=== PATIENT | male | born 1975 | race African-American/Black ===

== ENCOUNTER 2016-10-17 11:07 | Emergency (ER) | payer SELFPAY ==
[~2016-10-17] VITALS: Ht 170.2 cm; Wt 91.8 kg
[~2016-10-17 11:07] MED LIST: NOHOMEMEDS
[2016-10-17 12:13] LABS: ADD MIUA? NO; BILIRUBIN NEGATIVE; BLOOD NEGATIVE; COLOR YELLOW ((YELLOW)); GLUCOSE (STRIP) NEGATIVE; KETONES NEGATIVE; LEUKOCYTES NEGATIVE; NITRITE NEGATIVE; PROTEIN (STRIP) NEGATIVE; SPECIFIC GRAVITY 1.017 (1.000-1.030); UROBILINOGEN 0.2 MG/DL (0.2-1.0)
[2016-10-17 12:24] LABS: HEMATOCRIT 39.9 % (38.0-50.0); MCH 21.3 PG (29.0-34.0); MCHC 32.6 G/DL (30.0-36.0); MCV 65.3 FL (86-99); MEAN PLAT.VOLUME 10.3 uM^3 (9.0-12.4); PLATELET COUNT 252 K/uL (156-360); RBC DIS.WIDTH-CV 16.9 % (11.8-14.6); RBC DIS.WIDTH-SD 35.4 % (39-53); RED BLOOD COUNT 6.11 M/uL (4.00-5.50); WHITE BLOOD COUNT 9.5 K/uL (4.1-10.2)
[2016-10-17 12:25] LABS: CHLORIDE 107 mEq/L (99-109); POTASSIUM 5.8 mEq/L (3.7-5.4); SODIUM 138 mEq/L (136-147)
[2016-10-17 12:27] LABS: GLUCOSE 101 mg/dL (70-99)
[2016-10-17 12:28] LABS: ANION GAP 11 MEQ/L (2-14)
[2016-10-17 12:29] LABS: TOTAL BILIRUBIN 0.3 mg/dL (0.0-1.0)
[2016-10-17 12:30] LABS: ALKALINE PHOSPHATASE 89 IU/L (3-129)
[2016-10-17 12:31] LABS: GFR ESTIMATE (CALCULATED) > 59 mL/min/
[2016-10-17 12:32] LABS: UREA NITROGEN (BUN) 25 mg/dL (9-23)
[2016-10-17 12:34] LABS: LIPASE 40 U/L (1.0-51.0)
[2016-10-17] MEDS ORDERED: BENTYL20 MG PO (15:26)
[2016-10-17 15:45] VITALS: BP 129/83
== END 2016-10-17 15:46 | disposition home or self-care (01) ==
LOC: EME 11:07
PROVIDERS: Nurse Practitioner Family
DX: R10.30 Lower abdominal pain, unspecified (principal); E87.5 Hyperkalemia; E11.9 Type 2 diabetes mellitus without complications; I10 Essential (primary) hypertension; F17.200 Nicotine dependence, unspecified, uncomplicated; Z88.6 Allergy status to analgesic agent
CPT/HCPCS: 74177; 80053; 81003; 83690; 85027; 93005; 99281; 99284; J1885; J7040

== ENCOUNTER 2017-05-13 13:54 | Emergency (ER) | payer SELFPAY ==
[~2017-05-13] VITALS: Ht 170.2 cm; Wt 86.5 kg
[~2017-05-13 13:54] MED LIST changes: +BENTYL20 MG PO
[2017-05-13 16:29] LABS: ADD MIUA? YES; BILIRUBIN NEGATIVE; BLOOD NEGATIVE; COLOR YELLOW ((YELLOW)); GLUCOSE (STRIP) NEGATIVE; KETONES NEGATIVE; LEUKOCYTES NEGATIVE; NITRITE NEGATIVE; PROTEIN (STRIP) 30; SPECIFIC GRAVITY 1.023 (1.000-1.030); UROBILINOGEN 0.2 MG/DL (0.2-1.0)
[2017-05-13 16:40] LABS: BACTERIA RARE /HPF; EPITHELIAL CELLS RARE /HPF; MUCUS TRACE /LPF; RED BLOOD CELLS 0-5 /HPF (0-5); UCUL ADDED? NO; WHITE BLOOD CELLS 0-5 /HPF (0-5)
[2017-05-13] MEDS ORDERED: LIDODERM 5% P1 PATCH TD (17:12)
[2017-05-13] MEDS ORDERED: FLEXERIL10 MG PO (17:12)
[2017-05-13 17:43] VITALS: BP 146/88
== END 2017-05-13 17:44 | disposition home or self-care (01) ==
LOC: EME 13:54
PROVIDERS: Nurse Practitioner Family
DX: S29.012A Strain of muscle and tendon of back wall of thorax, initial encounter (principal); M62.830 Muscle spasm of back; M54.5 Low back pain; F17.210 Nicotine dependence, cigarettes, uncomplicated; Z88.5 Allergy status to narcotic agent; Z88.6 Allergy status to analgesic agent
CPT/HCPCS: 81003; 99281; 99284

== ENCOUNTER 2017-06-30 19:01 | Emergency (ER) | payer SELFPAY ==
[~2017-06-30] VITALS: Ht 167.6 cm; Wt 87.8 kg
[~2017-06-30 19:01] MED LIST changes: +FLEXERIL10 MG PO; +LIDODERM 5% P1 PATCH TD
[2017-06-30 20:00] LABS: HEMATOCRIT 40.1 % (38.0-50.0); MCHC 32.4 G/DL (30.0-36.0); MCV 64.7 FL (86-99); PLATELET COUNT 257 K/uL (156-360); RBC DIS.WIDTH-CV 18.4 % (11.8-14.6); RBC DIS.WIDTH-SD 37.6 % (39-53); WHITE BLOOD COUNT 9.2 K/uL (4.1-10.2)
[2017-06-30 20:13] LABS: AMPHETAMINE NEGATIVE (500 ng/mL); BARBITURATES NEGATIVE (200 ng/mL); BENZODIAZEPINES NEGATIVE (150 ng/mL); BUPRENORPHINE NEGATIVE (10 ng/mL); COCAINE NEGATIVE (150 ng/mL); METHADONE NEGATIVE (200 ng/mL); METHAMPHETAMINE NEGATIVE (500 ng/mL); OPIATES (MORPHINE) NEGATIVE (100 ng/mL); OXYCODONE PRESUMPTIVE POSITIVE (100 ng/mL); PHENCYCLIDINE NEGATIVE (25 ng/mL); PROPOXYPHENE NEGATIVE (300 ng/mL); THC CANNABINOIDS NEGATIVE (50 ng/mL); TRICYCLIC ANTIDEPRESSANTS NEGATIVE (300 ng/mL)
[2017-06-30 20:17] LABS: TROP-I INTERPRETATION NEGATIVE; TROPONIN-I < 0.01 ng/mL (0.0-0.30)
[2017-06-30 20:22] LABS: ALBUMIN 4.4 g/dL (3.2-4.8); CHLORIDE 108 mEq/L (99-109); POTASSIUM 3.7 mEq/L (3.7-5.4); SODIUM 142 mEq/L (136-147)
[2017-06-30 20:24] LABS: GLUCOSE 141 mg/dL (70-99); TOTAL PROTEIN 7.2 g/dL (6.4-8.3)
[2017-06-30 20:26] LABS: TOTAL BILIRUBIN 0.3 mg/dL (0.0-1.0)
[2017-06-30 20:27] LABS: SERUM ETHYL ALCOHOL 102 mg/dL
[2017-06-30 20:28] LABS: CREATININE 1.1 mg/dL (0.6-1.3); GFR ESTIMATE (CALCULATED) > 59 mL/min/ (58.99-99999)
[2017-06-30 20:29] LABS: ALKALINE PHOSPHATASE 92 IU/L (3-129)
[2017-06-30 20:30] LABS: AST (GOT) 26 IU/L (2-34); UREA NITROGEN (BUN) 12 mg/dL (9-23)
[2017-06-30 20:31] LABS: SALICYLATE < 5.0 MG/DL (15-30)
[2017-06-30 20:32] LABS: ACETAMINOPHEN (TYLENOL) < 10 mcg/mL (10-30); ALT (GPT) 21 IU/L (3-49)
[2017-07-01 03:01] VITALS: BP 112/73
== END 2017-07-01 02:59 | disposition home or self-care (01) ==
LOC: EME 19:01
PROVIDERS: Emergency Medicine
DX: T40.1X1A Poisoning by heroin, accidental (unintentional), initial encounter (principal); F17.200 Nicotine dependence, unspecified, uncomplicated; Z88.5 Allergy status to narcotic agent; Z88.6 Allergy status to analgesic agent
CPT/HCPCS: 80053; 84484; 85027; 99281; 99285; G0480; J2310; J7030

== ENCOUNTER 2017-08-07 09:44 | Emergency (ER) | payer OTHER ==
[~2017-08-07] VITALS: Ht 170.2 cm; Wt 88.0 kg
[2017-08-07] MEDS ORDERED: VOLTAREN 1% GE100 GM TP (13:01)
[2017-08-07] MEDS ORDERED: BENTYL20 MG PO (13:01)
[2017-08-07] MEDS ORDERED: LORTAB 5-325 M1 EACH PO (13:01)
[2017-08-07 13:13] VITALS: BP 130/76
== END 2017-08-07 13:13 | disposition home or self-care (01) ==
LOC: EME 09:44
DX: M25.561 Pain in right knee (principal); M25.562 Pain in left knee; K80.70 Calculus of gallbladder and bile duct without cholecystitis without obstruction; Y99.0 Civilian activity done for income or pay; F17.200 Nicotine dependence, unspecified, uncomplicated; Z71.6 Tobacco abuse counseling; Z88.6 Allergy status to analgesic agent
CPT/HCPCS: 73564; 99281; 99283